=== PATIENT | female | born 1955 | race Caucasian/White ===

== ENCOUNTER 2019-12-04 17:25 | Emergency (ER) | payer MEDICARE, OTHER ==
[2019-12-04] MEDS ORDERED: HYDROCODONE/ACETAMINOPHEN 5-325 MG TABLET PO ONE (17:34)
--- NOTE | 2019-12-04 17:42 | ER Document Report ---
ED Medical Screen (RME) - General Chief Complaint: Ankle Pain Stated Complaint: FALL/ANKLE PAIN Time Seen by Provider: 12/04/19 17:32 Primary Care Provider: SOCORRO CRAIN NP [Primary Care Provider] - Follow up as needed Mode of Arrival: Wheelchair Information source: Patient Notes: Patient states that her dog knocked her over causing her to injure her right ankle just prior to arrival. Patient denies any other injury. I have greeted and performed a rapid initial assessment of this patient. A comprehensive ED assessment and evaluation of the patient, analysis of test results and completion of the medical decision making process will be conducted by additional ED providers. - Related Data Allergies/Adverse Reactions: Penicillins Allergy (Verified 12/04/19 17:32) Past Medical History Past Surgical History: Reports: Hx Hysterectomy - Immunizations Hx Diphtheria, Pertussis, Tetanus Vaccination: No Physical Exam - Vital signs Vitals: Temp Pulse Resp BP Pulse Ox 98.1 F 96 16 110/90 H 95 12/04/19 17:30 12/04/19 17:30 12/04/19 17:30 12/04/19 17:30 12/04/19 17:30 - Extremities Ankle: Tender - Right ankle tenderness over lateral malleolar area with 2+ edema Course - Vital Signs Vital signs: Temp Pulse Resp BP Pulse Ox 98.1 F 96 16 110/90 H 95 12/04/19 17:32 12/04/19 17:30 12/04/19 17:30 12/04/19 17:30 12/04/19 17:30 Doctor's Discharge - Discharge Referrals: SOCORRO CRAIN NP [Primary Care Provider] - Follow up as needed
--- NOTE | 2019-12-04 18:11 | RADIOLOGY REPORT (SQ) ---
EXAM DESCRIPTION: ANKLE RIGHT COMPLETE IMAGES COMPLETED DATE/TIME: 12/04/2019 5:54 pm REASON FOR STUDY: fall, r lateral ankle pain COMPARISON: None. NUMBER OF VIEWS: Three views. TECHNIQUE: AP, lateral, and oblique radiographic images acquired of the right ankle. LIMITATIONS: None. FINDINGS: MINERALIZATION: Normal. BONES: Tiny avulsion fracture from the tip of the lateral malleolus. No worrisome bone lesions. JOINTS: No effusions. SOFT TISSUES: Lateral soft tissue swelling. No foreign body. OTHER: No other significant finding. IMPRESSION: TINY AVULSION FRACTURE FROM THE TIP OF THE LATERAL MALLEOLUS. TECHNICAL DOCUMENTATION: JOB ID: [id number] 2010 [email or web address]- All Rights Reserved Reading location - IP/workstation name: [email or web address]
[2019-12-04] MEDS ORDERED: HYDROCODONE/ACETAMINOPHEN 5-325 MG (6 TAB/ER DISP) PO PRN (18:26)
--- NOTE | 2019-12-04 18:27 | ER Document Report ---
HPI - HPI Patient complains to provider of: right ankle pain Time Seen by Provider: 12/04/19 17:32 Onset: Just prior to arrival Onset/Duration: Sudden Severity: Moderate Pain Level: 3 Context: 64-year-old female presents emergency department with complaints of right ankle pain. She reports she was playing with one dog when her other dog came at her and knocked her over. She reports she just rolled her ankle. She did not fall and hit her head. She complains of pain since that time difficulty walking. No other complaints such as fever vomiting diarrhea. Associated Symptoms: None Exacerbated by: Walking Relieved by: Denies Similar symptoms previously: No Recently seen / treated by doctor: No - REPRODUCTIVE Reproductive: DENIES: : - MUSCULOSKELETAL Musculoskeletal: REPORTS: Extremity pain Past Medical History - General Information source: Patient - Social History Smoking Status: Never Smoker Cigarette use (# per day): No Occupation: [employer] Lives with: Family Family History: Reviewed & Not Pertinent Patient has suicidal ideation: No Patient has homicidal ideation: No - Past Medical History Cardiac Medical History: Denies: Hx Heart Attack, Hx Hypertension Pulmonary Medical History: Denies: Hx Asthma Psychiatric Medical History: Reports: Hx Depression Traumatic Medical History: Reports: Hx Fractures Past Surgical History: Reports: Hx Hysterectomy - Immunizations Hx Diphtheria, Pertussis, Tetanus Vaccination: No Vertical Provider Document - CONSTITUTIONAL Agree With Documented VS: Yes Exam Limitations: No Limitations General Appearance: WD/WN, No Apparent Distress - HEENT HEENT: Atraumatic, Normocephalic - NECK Neck: Supple - RESPIRATORY Respiratory: No Respiratory Distress - CARDIOVASCULAR Cardiovascular: Regular Rate - MUSCULOSKELETAL/EXTREMETIES Musculoskeletal/Extremeties: Tender - NEURO Level of Consciousness: Awake, Alert, Appropriate Motor/Sensory: No Motor Deficit - DERM Integumentary: Warm, Dry Course - Re-evaluation Re-evalutation: 12/04/19 18:27 64-year-old female presents with right ankle pain after her dog knocked her over. Patient does have a tiny avulsion fracture. She was instructed on this, instructed on posterior ankle splint and crutches. Instructed on no weight bearing. For pain control she was ordered [place]. She was provided with the name of 3 orthopedics she may follow-up with. She verbalized understanding to all instructions. Ankle X-Ray 12/04/19 17:34 IMPRESSION: TINY AVULSION FRACTURE FROM THE TIP OF THE LATERAL MALLEOLUS. - Vital Signs Vital signs: Temp Pulse Resp BP Pulse Ox 98.1 F 77 16 113/76 98 12/04/19 18:17 12/04/19 18:17 12/04/19 18:17 12/04/19 18:17 12/04/19 18:17 - Diagnostic Test Radiology reviewed: Image reviewed, Reports reviewed Procedures - Immobilization Right Ankle Pre-Proc Neuro Vasc Exam: Normal Immobilizer type: Posterior ankle Performed by: PCT - brian Post-Proc Neuro Vasc Exam: Unchanged from pre-exam Alignment checked and good: Yes Discharge - Discharge Clinical Impression: Right ankle pain Qualifiers: Chronicity: acute Qualified Code(s): M25.571 - Pain in right ankle and joints of right foot Fractured lateral malleolus Qualifiers: Encounter type: initial encounter Fracture type: closed Fracture alignment: nondisplaced Laterality: right Qualified Code(s): S82.64XA - Nondisplaced fracture of lateral malleolus of right fibula, initial encounter for closed fracture Condition: Stable Disposition: HOME, SELF-CARE Instructions: Avulsion Fracture of the Ankle ([facility]), Use of Crutches ([facility]), Use of [id number]-[id number] Ibuprofen ([facility]), Ice & Elevation ([facility]), Oral Narcotic Medication ([facility]) Additional Instructions: *You have been evaluated for an ankle injury, avulsion fracture right malleolus *Rest/Ice/Elevate your ankle *Maintain the splint *Use your crutches Friday-call for an appointment *Take medication as prescribed- take ibuprofen as indicated, take norco for acute pain--one tab every 6 hours by mouth *Return to ED for worsening condition, changes, needs Referrals: SOCORRO CRAIN NP [ALLIED HEALTH PROFESSIONAL] - Follow up as needed [facility] [Provider Group] - Follow up as needed JJ RIGGS JR, DO [ACTIVE PROVISIONAL STAFF] - Follow up as needed ANDREA RACHEL MD [ACTIVE PROVISIONAL STAFF] - Follow up as needed
[2019-12-04 18:36] VITALS: BP 113/76
== END 2019-12-04 18:53 | disposition home or self-care (01) ==
LOC: ER 17:25
DX: S82.64XA Nondisplaced fracture of lateral malleolus of right fibula, initial encounter for closed fracture (principal); M25.571 Pain in right ankle and joints of right foot; W18.30XA Fall on same level, unspecified, initial encounter; Y93.K9 Activity, other involving animal care; Z88.0 Allergy status to penicillin; Z90.710 Acquired absence of both cervix and uterus
CPT/HCPCS: 99283; 73610; 29515; A9270 ×2

== ENCOUNTER → 2020-02-05 | Outpatient (CLI) | payer MEDICARE, OTHER ==
--- NOTE | 2020-02-06 10:04 | RADIOLOGY REPORT (SQ) ---
EXAM DESCRIPTION: MRI RT LOWER JOINT WITHOUT IMAGES COMPLETED DATE/TIME: 02/05/2020 4:54 pm REASON FOR STUDY: (S93.401D)SPRAIN OF UNSPECIFIED LIGAMENT OF RIGHT ANKLE, SUBS ENCNTR S93.401D SPR AIN OF UNSPECIFIED LIGAMENT OF RIGHT ANKLE, SUBS COMPARISON: None. TECHNIQUE: Right ankle images acquired and stored on PACS. Multiplanar images include fat sensitive sequences as T1, fluid sensitive sequences as FST2/STIR, cartilage sensitive sequences as FSPD, and g radient echo sequences. LIMITATIONS: None. FINDINGS: BONE MARROW: No fracture or worrisome bone lesion. T2 sequences suggest very minimal [place] ow edema, patchy increased signal in the tip of the medial malleolus and in the tip of the lateral ma lleolus. Nonspecific. EFFUSIONS: Trace ankle joint fluid. No large effusion. OSSEOUS ARTICULATIONS: Normal tibiotalar, subtalar, talonavicular and calcaneocuboid joints. TALAR DOME AND TIBIAL PLAFOND: Normal cartilage. No osteochondral defect. ACHILLES TENDON: Intact without partial or full-thickness tear. No adjacent bursal fluid or edema. TIBIALIS ANTERIOR TENDON: Intact without edema at the 1st MT attachment. TIBIALIS POSTERIOR TENDON: Normal morphology and no edema at the navicular attachment. No tendon perales th fluid. FLEXOR HALLUCIS LONGUS AND FLEXOR DIGITORUM TENDONS: Normal morphology and no tendon sheath fluid. No edema of the os trigonum. PERONEUS LONGUS AND BREVIS TENDON: Normal morphology and no tendon sheath fluid. No subluxation. ATFL, CFL, PTFL: Intact. No thickening or signal alteration. No warren-ligamentous fluid. DELTOID LIGAMENT: Visualized components intact. TARSAL TUNNEL: No masses. No muscle atrophy. SINUS TARSI: No fluid. No reactive marrow edema or erosions. PLANTAR FASCIA: No signal alteration or tear. ADJACENT SOFT TISSUES: No drainable collections or mass. OTHER: No other significant finding. IMPRESSION: 1. Fairly unremarkable ankle MRI allowing for minimal patchy marrow edema in the medial and lateral m alleoli, nonspecific. No fracture or suspicious bone lesion. No effusion or evidence of synovitis n o structural abnormality of the tendons or ligaments appreciated. . TECHNICAL DOCUMENTATION: JOB ID: [id number] 2010 [employer]- All Rights Reserved Reading location - IP/workstation name: [email or web address]
== END ==
LOC: RAD 16:14
PROVIDERS: ATTEND Orthopaedic Surgery
DX: S93.401D Sprain of unspecified ligament of right ankle, subsequent encounter (principal); X58.XXXD Exposure to other specified factors, subsequent encounter

== ENCOUNTER → 2020-05-16 | Outpatient (CLI) | payer MEDICARE, OTHER ==
--- NOTE | 2020-05-17 11:30 | RADIOLOGY REPORT (SQ) ---
EXAM DESCRIPTION: MRI RT LOWER JOINT WITHOUT IMAGES COMPLETED DATE/TIME: 05/16/2020 1:09 pm REASON FOR STUDY: M25.571 PAIN IN RIGHT ANKLE AND JOINTS OF RIGHT FOOT M25.571 PAIN IN RIGHT ANKLE AND JOINTS OF RIGHT FOOT COMPARISON: 02/05/2020 TECHNIQUE: Right ankle images acquired and stored on PACS. Multiplanar images include fat sensitive sequences as T1, fluid sensitive sequences as FST2/STIR, cartilage sensitive sequences as FSPD, and g radient echo sequences. LIMITATIONS: None. FINDINGS: BONE MARROW: Increasing patchy edema is seen throughout the visualized marrow. No fractur e or infiltrative process. EFFUSIONS: No subtalar or tibiotalar effusions. No loose bodies. OSSEOUS ARTICULATIONS: Normal tibiotalar, subtalar, talonavicular and calcaneocuboid joints. TALAR DOME AND TIBIAL PLAFOND: Normal cartilage. No osteochondral defect. ACHILLES TENDON: Intact without partial or full-thickness tear. No adjacent bursal fluid or edema. TIBIALIS ANTERIOR TENDON: Intact without edema at the 1st MT attachment. TIBIALIS POSTERIOR TENDON: Attachment on the navicular is preserved ; there is the suggestion of norm al variant os navicular. FLEXOR HALLUCIS LONGUS AND FLEXOR DIGITORUM TENDONS: Normal morphology and no tendon sheath fluid. No edema of the os trigonum. PERONEUS LONGUS AND BREVIS TENDON: Trace fluid is seen within the tendon sheath as these tendons cour se posterior and caudal to the distal fibula. Mild thickening and and decreased intrasubstance signa l of the peroneus longus. Attachments are preserved. ATFL, CFL, PTFL: Intact. No thickening or signal alteration. No warren-ligamentous fluid. DELTOID LIGAMENT: Visualized components intact. TARSAL TUNNEL: No masses. No muscle atrophy. SINUS TARSI: No fluid. No reactive marrow edema or erosions. PLANTAR FASCIA: Mild thickening and increased in stress substance signal at the origin suggests a deg ree chronic plantar fasciitis. No acute inflammatory changes on today's examination. ADJACENT SOFT TISSUES: No masses. OTHER: No other significant finding. 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 Focal marrow edema involving t he 2nd metatarsal may be related to stress reaction; this is incompletely evaluated on today's examin ation. Mild tenosynovitis of the peroneus longus and brevis tendons. Normal variant os navicular ma y be present. Recommend further evaluation with routine right foot radiographs to assess for stress changes of the 2nd metatarsal and navicular bone morphology. TECHNICAL DOCUMENTATION: JOB ID: [id number] 2010 [employer]- All Rights Reserved Reading location - IP/workstation name: [email or web address]
== END ==
LOC: RAD 12:12
PROVIDERS: ATTEND Physician Assistant
DX: M65.171 Other infective (teno)synovitis, right ankle and foot (principal)